=== PATIENT | female | born 1965 | race African-American/Black ===

== ENCOUNTER 2019-01-23 08:52 | Inpatient (IN) | payer MEDICAID, OTHER ==
[~2019-01-23] VITALS: Ht 157.5 cm; Wt 52.2 kg
--- NOTE | 2019-01-23 09:00 | NUR ---
PT A/OX4, BIB [facility], C/O EPIGASTRIC PAIN THAT STARTED YESTERDAY BUT WORSE TODAY. PT REPORTS NON-PROVOKED EPIGASTRIC PAIN, SHARP IN QUALITY, RADIATES UP THE L SIDE OF THE NECK AND DOWN INTO THE L ARM, 3/10, CONSTANT. SECONDARY COMPLAINT: NAUSEA. PT DENIES SOB, DIZZINESS, HEADACHE, VOMITING. ER MD AT BEDSIDE FOR MSE.
[2019-01-23] MEDS ORDERED: PANTOPRAZOLE SODIUM 40 MG TABLET.DR PO ONE ×2 (09:12→09:15)
[2019-01-23] MEDS ORDERED: MAG HYDROX/AL HYDROX/SIMETH 30 ML LIQUID UDC ONE (09:12)
[2019-01-23] MEDS ORDERED: LIDOCAINE VISCUS 2% 15 ML UDC ONE (09:12)
[2019-01-23] MEDS ORDERED: LIDOCAINE VISCUS 2% 15 ML UDC MM ONE (09:15)
[2019-01-23] MEDS ORDERED: MAG HYDROX/AL HYDROX/SIMETH 30 ML LIQUID UDC PO ONE (09:15)
[2019-01-23] MEDS ORDERED: ONDANSETRON 4 MG/2 ML VIAL IV ONE (09:30)
[2019-01-23] MEDS ORDERED: ONDANSETRON ODT 4 MG TAB.RAPDIS ONE (09:41)
[2019-01-23] MEDS ORDERED: ONDANSETRON ODT 4 MG TAB.RAPDIS SL ONE (09:45)
[2019-01-23] MEDS ORDERED: MORPHINE SULFATE 2 MG/1 ML DISP.SYRIN ONE (09:47)
[2019-01-23 09:51] LABS: CREATININE 0.9 mg/dL (0.6-1.3); POTASSIUM 3.8 mmol/L (3.5-5.1)
[2019-01-23 09:56] LABS: BILIRUBIN,DIRECT 0.2 mg/dL (0.0-0.2); BILIRUBIN,TOTAL 0.7 mg/dL (0.2-1.0); TOTAL PROTEIN, SERUM 8.9 g/dL (6.4-8.2)
[2019-01-23 09:58] LABS: BASOPHILS # (AUTO) 0.1 K/uL (0.0-8.0); BASOPHILS % (AUTO) 1.4 % (0.0-2.0); EOSINOPHILS % (AUTO) 0.3 % (0.0-7.0); HEMATOCRIT 43.8 % (31.2-41.9); HEMOGLOBIN 13.8 g/dL (10.9-14.3); LYMPHOCYTES # (AUTO) 1.9 K/uL (20.0-40.0); LYMPHOCYTES % (AUTO) 25.3 % (20.5-51.5); MEAN CORPUSCULAR HEMOGLOBIN 28.5 uug (24.7-32.8); MEAN CORPUSCULAR HGB CONC 32 g/dL (32.3-35.6); MEAN CORPUSCULAR VOLUME 90.1 fL (75.5-95.3); MONOCYTES # (AUTO) 0.4 K/uL (2.0-10.0); MONOCYTES % (AUTO) 5.6 % (0.0-11.0); NEUTROPHILS % (AUTO) 67.4 % (38.5-71.5); PLATELET COUNT (AUTO) 357 K/uL (179-408); RED BLOOD CELL COUNT(AUTO) 4.86 MIL/uL (3.63-4.92); WHITE BLOOD COUNT (AUTO) 7.4 K/uL (3.8-11.8)
[2019-01-23] MEDS ORDERED: MORPHINE SULFATE 2 MG/1 ML DISP.SYRIN IV ONE (10:00)
[2019-01-23] MEDS ORDERED: MORPHINE SULFATE 4 MG/1 ML DISP.SYRIN IV ONE (11:45)
[2019-01-23] MEDS ORDERED: MORPHINE SULFATE 4 MG/1 ML DISP.SYRIN ONE (11:49)
--- NOTE | 2019-01-23 13:14 | NUR ---
ADMITTING REPORT GIVEN TO CRISTY BECK.
--- NOTE | 2019-01-23 13:15 | NUR ---
Pt. admitted to TELE 324, under care of Dr. STEARNS. Belongs List completed
[2019-01-23] MEDS ORDERED: IV NORMAL SALINE 1000 ML BAG IV ONE (14:00)
--- NOTE | 2019-01-23 14:15 | NUR ---
PT ARRIVED VIA GURNEY ON THE [facility] UNIT. PT IS CALM, COOPERATIVE, STABLE AT THIS TIME. PT DESCRIBED SHARP AND DULL PAIN RADIATING FROM NECK TO SHOULDER TO ARM. PT C/O NUMBNESS ON THE LEFT SIDE OF FACE. BILATERAL LOWER AND UPPER EXTREMITIES ARE STRONG, EQUAL, WNL, PUPILS DILATE EQUALLY, NO SIGNS OF FACIAL DROOPING. PT IS ON ROOM AIR SATURATING AT 98%. PT STATES THAT SHE WAS A [facility] A DAY AGO AND THAT SHE WAS DIAGNOSED WITH MILD DC, NOTIFIED. CONTINUE TO MONITOR PT.
[2019-01-23 14:45] VITALS: BP 148/84
[2019-01-23] MEDS ORDERED: ZOLPIDEM 5 MG TABLET PO PRN (16:15)
[2019-01-23] MEDS ORDERED: ACETAMINOPHEN 325 MG TABLET PO PRN (16:15)
[2019-01-23] MEDS: HYDROCODONE/APAP 5-325MG TABLET PO PRN ×2 (17:33→22:08)
--- NOTE | 2019-01-23 19:20 | NUR ---
Received patient lying in bed. AAOX4. In no acute distress. Denies any SOB. pain on left side of face, shoulder and left arm area subsiding. Patient reported vomiting x1 and still feeling nauseated. Will provided Zofran PRN per order. IV site on right wrist intact and patent, but tender to touch. IV site on left AC intact and patent. Needs assessed and attended to. Safety measure initiated and call juárez within reach.
--- NOTE | 2019-01-23 19:20 | NUR ---
Received patient lying in bed. AAOX4. In no acute distress. Denies any SOB. Will provide Dilaudid PRN per order. IV site on right FA intact and patent. IVF infusing. Needs assessed and attended to. Safety measure initiated and call juárez within reach. Addendum: 01/23/19 at [id number] by CHILANGO FOY RN Wrong patient
[2019-01-23] MEDS: ONDANSETRON 4 MG/2 ML VIAL IV PRN (19:41)
[2019-01-23] MEDS: DOCUSATE SODIUM 100 MG CAPSULE PO SCH (20:19)
[2019-01-23 20:22] VITALS: BP 143/81
[2019-01-23] MEDS ORDERED: DOCUSATE SODIUM 250 MG CAPSULE PO SCH (21:00)
[2019-01-23 23:51] VITALS: BP 141/82
[2019-01-24 04:59] VITALS: BP 138/85
[2019-01-24] MEDS: PANTOPRAZOLE SODIUM 40 MG TABLET.DR PO SCH (06:03)
--- NOTE | 2019-01-24 06:08 | NUR ---
AAOX4. In no acute distress. Denies any further pain or SOB. No further vomiting. IV site on right wrist and left AC intact and patent. Needs assessed and attended to. Safety measure maintained and call juárez within reach.
[2019-01-24 07:35] LABS: BASOPHILS % (AUTO) 0.8 % (0.0-2.0); EOSINOPHILS % (AUTO) 0.4 % (0.0-7.0); HEMATOCRIT 37.6 % (31.2-41.9); LYMPHOCYTES # (AUTO) 1.7 K/uL (20.0-40.0); LYMPHOCYTES % (AUTO) 28.1 % (20.5-51.5); MEAN CORPUSCULAR HEMOGLOBIN 28.1 uug (24.7-32.8); MEAN CORPUSCULAR HGB CONC 32 g/dL (32.3-35.6); MONOCYTES % (AUTO) 16.5 % (0.0-11.0); NEUTROPHILS # (AUTO) 3.2 K/uL (1.8-8.9); NEUTROPHILS % (AUTO) 54.2 % (38.5-71.5); PLATELET COUNT (AUTO) 333 K/uL (179-408); RED BLOOD CELL COUNT(AUTO) 4.27 MIL/uL (3.63-4.92); WHITE BLOOD COUNT (AUTO) 5.9 K/uL (3.8-11.8)
[2019-01-24 07:49] LABS: BILIRUBIN,TOTAL 1.5 mg/dL (0.2-1.0); CREATININE 0.9 mg/dL (0.6-1.3); MAGNESIUM 2.3 mg/dL (1.8-2.4); TOTAL PROTEIN, SERUM 8.2 g/dL (6.4-8.2)
[2019-01-24 07:51] LABS: THYROID STIMULATING HORMONE 6.094 mIU/mL (0.358-3.740)
[2019-01-24 08:00] VITALS: BP 133/83
[2019-01-24] MEDS: ASPIRIN EC 325 MG TABLET.DR PO SCH (08:42)
[2019-01-24 09:05] LABS: LYMPHOCYTES % (MANUAL) 36 % (20-40); MONOCYTES % (MANUAL) 17 % (2-10); NEUTROPHILS % (MANUAL) 47 % (42-75)
--- NOTE | 2019-01-24 09:54 | NUR ---
PATIENT IS RESTING, WAITING FOR MRI AT 9:30 AM, NO S/S DISTRESS, CONSENT FORM IN THE FILE
[2019-01-24] MEDS: ONDANSETRON 4 MG/2 ML VIAL IV PRN (12:22)
[2019-01-24 12:28] VITALS: BP 144/100
--- NOTE | 2019-01-24 13:15 | NUR ---
PATIENT CAME FROM MRI, FEELS NAUSEATED. ZOFRAN IS GIVEN, ASSESSED, SHE FEELS GOOD, RESTING, NO S/S DISTRESS NOTED
[2019-01-24 16:13] VITALS: BP 134/91
--- NOTE | 2019-01-24 18:59 | NUR ---
PATIENT IS RESTING, SLEPT WELL DURING THE DAY, ALL SAFETY AND COMFORT MEASURES ARE IMPLEMENTED, SISTER IN BED SIDE
[2019-01-24] MEDS: HYDROCODONE/APAP 5-325MG TABLET PO PRN (19:49)
[2019-01-24] MEDS: DOCUSATE SODIUM 100 MG CAPSULE PO SCH (20:05)
[2019-01-24 20:15] VITALS: BP 143/91
[2019-01-24] MEDS ORDERED: ATORVASTATIN 40 MG TABLET PO SCH (21:00)
--- NOTE | 2019-01-24 21:00 | NUR ---
Received patient AAOx4. Sister at bedside. D/C telemetry. Patient complains of right neck, and arm pain. PRN Barney administered. Denies headache and nausea at this time. Swallowing screen evaluation completed and passed. Tolerated medications, able to swallow medications with glass of water. IV on left AC patent and intact. Patient verbalizes understanding of plan of care. Safety precautions implemented. Bed in lowest and locked position. Call light within reach. All needs met at this time. Will continue to monitor throughout shift.
[2019-01-25] MEDS: PANTOPRAZOLE SODIUM 40 MG TABLET.DR PO SCH (06:02)
--- NOTE | 2019-01-25 06:30 | NUR ---
Patient slept throughout the night. VSS. No s/s of pain or acute distress. Denies further pain. No further vomiting. Safety and comfort measures implemented and effective. Continue plan of care.
[2019-01-25 06:45] VITALS: BP 116/81
[2019-01-25 07:18] LABS: BASOPHILS % (AUTO) 1.1 % (0.0-2.0); EOSINOPHILS # (AUTO) 0.1 K/uL (0.0-0.7); EOSINOPHILS % (AUTO) 3.4 % (0.0-7.0); HEMOGLOBIN 12.9 g/dL (10.9-14.3); LYMPHOCYTES # (AUTO) 1.1 K/uL (20.0-40.0); MEAN CORPUSCULAR HGB CONC 33 g/dL (32.3-35.6); MEAN CORPUSCULAR VOLUME 87.3 fL (75.5-95.3); MONOCYTES # (AUTO) 0.6 K/uL (2.0-10.0); MONOCYTES % (AUTO) 16.9 % (0.0-11.0); NEUTROPHILS # (AUTO) 1.9 K/uL (1.8-8.9); NEUTROPHILS % (AUTO) 49.6 % (38.5-71.5); PLATELET COUNT (AUTO) 301 K/uL (179-408); RED BLOOD CELL COUNT(AUTO) 4.46 MIL/uL (3.63-4.92); WHITE BLOOD COUNT (AUTO) 3.7 K/uL (3.8-11.8)
--- NOTE | 2019-01-25 07:30 | NUR ---
pt received in bed sleeping .pt is axox4 no c/o pain noted ,call light with in reach
[2019-01-25 07:31] LABS: BILIRUBIN,DIRECT 0.2 mg/dL (0.0-0.2); BILIRUBIN,TOTAL 1.1 mg/dL (0.2-1.0); CREATININE 0.8 mg/dL (0.6-1.3); POTASSIUM 4.1 mmol/L (3.5-5.1); TOTAL PROTEIN, SERUM 7.9 g/dL (6.4-8.2)
[2019-01-25] MEDS: ASPIRIN EC 325 MG TABLET.DR PO SCH (08:06)
[2019-01-25 08:58] LABS: EOSINOPHILS % (MANUAL) 3 % (0-8); LYMPHOCYTES % (MANUAL) 30 % (20-40); MONOCYTES % (MANUAL) 16 % (2-10); NEUTROPHILS % (MANUAL) 51 % (42-75)
[2019-01-25 11:11] VITALS: BP 103/77
--- NOTE | 2019-01-25 13:50 | NUR ---
pt went to [facility] for mri via ambulances in stable condition
--- NOTE | 2019-01-25 15:09 | NUR ---
pt is back from mri via ambulances in stable condition
[2019-01-25 15:25] VITALS: BP 137/89
[2019-01-25] MEDS ORDERED: ASPI-605 PO (16:20)
[2019-01-25] MEDS ORDERED: ATOR40TA PO (16:20)
--- NOTE | 2019-01-25 17:12 | NUR ---
d/c orders received noted and carried out,d/c instruction given to the pt,ene/leah hawkins per md orders,pt said she will follow up with her pcp in one week and follow up with dr pelaez ,pt left the facility via private car in stable condition
== END 2019-01-25 17:15 | disposition home or self-care (01) | DRG 347 ==
LOC: ER 08:52 → TELE3 13:59 → MEDSURG3 01-24 20:05
PROVIDERS: ADMIT Internal Medicine; ATTEND Internal Medicine
DX: M50.122 Cervical disc disorder at C5-C6 level with radiculopathy (principal); R17 Unspecified jaundice; R20.2 Paresthesia of skin; M94.0 Chondrocostal junction syndrome [Tietze]; E78.5 Hyperlipidemia, unspecified; E02 Subclinical iodine-deficiency hypothyroidism; I10 Essential (primary) hypertension; M77.9 Enthesopathy, unspecified; M47.892 Other spondylosis, cervical region; Z82.3 Family history of stroke; Z86.79 Personal history of other diseases of the circulatory system; Z90.710 Acquired absence of both cervix and uterus; Z80.42 Family history of malignant neoplasm of prostate; R29.700 NIHSS score 0
CPT/HCPCS: 36415; 70030-TC; 70450; 70553; 71045; 72125; 72141; 76700; 83690; 83735; 84100; 84443; 85025; 93005; 93307; 93880; A4663; G0378; J2270; J2405; J7030; Q0162

== ENCOUNTER 2023-06-03 11:00 | Inpatient (IN) | payer BC, OTHER ==
[~2023-06-03] VITALS: Ht 157.5 cm; Wt 55.8 kg
[~2023-06-03 11:00] MED LIST: ASPI-605 PO; ATOR40TA PO
[2023-06-03] MEDS ORDERED: IV NORMAL SALINE 1000 ML BAG IV ONE ×2 (13:00→17:30)
[2023-06-03] MEDS ORDERED: DEXAMETHASONE SOD PHOSPHATE 4 MG INJ IV ONE (13:00)
[2023-06-03] MEDS ORDERED: CEFTRIAXONE 1 G in IV DEXTROSE 5% 50 ML IV ONE (13:00)
[2023-06-03 13:33] LABS: BASOPHILS # (AUTO) 0.1 K/UL (0.0-0.2); DIFFERENTIAL COMMENT 0; EOSINOPHILS % (AUTO) 0.2 % (0.0-7.0); HEMATOCRIT 40.5 % (31.2-41.9); HEMOGLOBIN 13.1 g/dL (10.9-14.3); LYMPHOCYTES # (AUTO) 1.7 K/uL (0.8-4.8); MEAN CORPUSCULAR HEMOGLOBIN 29.2 uug (24.7-32.8); MEAN CORPUSCULAR HGB CONC 32 g/dL (32.3-35.6); MEAN CORPUSCULAR VOLUME 90.2 fL (75.5-95.3); MONOCYTES # (AUTO) 0.8 K/uL (0.1-1.30); MONOCYTES % (AUTO) 7.9 % (0.0-11.0); NEUTROPHILS # (AUTO) 7.3 K/uL (1.8-8.9); NEUTROPHILS % (AUTO) 73.9 % (38.5-71.5); PLATELET COUNT (AUTO) 192 K/uL (179-408); RED BLOOD CELL COUNT(AUTO) 4.49 MIL/uL (3.63-4.92); RED CELL DISTRIBUTION WIDTH 14.7 % (12.3-17.7); WHITE BLOOD COUNT (AUTO) 9.9 K/uL (3.8-11.8)
[2023-06-03] MEDS ORDERED: CEFTRIAXONE /D5W 50ML IVPB **ER PYXIS IV ONE (13:33)
[2023-06-03] MEDS ORDERED: DEXAMETHASONE SOD PHOSPHATE 10 MG INJ ONE (13:34)
[2023-06-03 13:56] LABS: ALANINE AMINOTRANSFERASE 39 U/L (14-59); ALBUMIN 4.3 g/dL (3.4-5.0); ALKALINE PHOSPHATASE 116 U/L (50-136); ASPARTATE AMINOTRANSFERASE 59 U/L (15-37); BILIRUBIN,DIRECT 0.2 mg/dL (0.0-0.2); BILIRUBIN,TOTAL 0.8 mg/dL (0.2-1.0); CALCIUM 8.6 mg/dL (8.5-10.1); CARBON DIOXIDE 20 mmol/L (21-32); CHLORIDE 96 mmol/L (98-107); CREATININE 0.8 mg/dL (0.6-1.3); GLUCOSE 68 mg/dL (74-106); NT-PRO BNP 14 pg/mL (0-125); POTASSIUM 4.5 mmol/L (3.5-5.1); SODIUM SERUM 136 mmol/L (136-145); TOTAL PROTEIN, SERUM 8.3 g/dL (6.4-8.2); UREA NITROGEN, BLOOD 9 mg/dL (7-18)
[2023-06-03 14:03] LABS: LACTIC ACID 6.2 mmol/L (0.4-2.0)
[2023-06-03] MEDS ORDERED: KETOROLAC TROMETHAMINE 15 MG INJ IVP ONE (15:00)
[2023-06-03] MEDS ORDERED: KETOROLAC TROMETHAMINE 15 MG INJ ONE (15:17)
[2023-06-03] MEDS ORDERED: ONDANSETRON 4 MG/2 ML VIAL ONE (18:44)
[2023-06-03] MEDS ORDERED: MORPHINE SULFATE 4 MG/1 ML DISP.SYRIN ONE (18:44)
[2023-06-03] MEDS ORDERED: ONDANSETRON 4 MG/2 ML VIAL IV ONE (19:00)
[2023-06-03] MEDS ORDERED: MORPHINE SULFATE 4 MG/1 ML DISP.SYRIN IV ONE (19:00)
[2023-06-03] MEDS ORDERED: MAGNESIUM HYDROXIDE 30 ML LIQUID UDC PO PRN (19:45)
[2023-06-03] MEDS ORDERED: ONDANSETRON 4 MG/2 ML VIAL IV PRN (19:45)
[2023-06-03] MEDS ORDERED: REMEDY ESSENTIAL ZINC PASTE 113 GM TP PRN (19:45)
[2023-06-03] MEDS ORDERED: ACETAMINOPHEN 325 MG TABLET PO PRN (19:45)
[2023-06-03] MEDS ORDERED: MORPHINE SULFATE 2 MG/1 ML DISP.SYRIN IV PRN (20:00)
[2023-06-03 20:35] VITALS: BP 114/66; TEMP 98.6; O2SAT 96
[2023-06-03] MEDS: IV D5 1/2 NS 1000 ML 1,000 ML IV PRN (20:53)
[2023-06-03] MEDS: BENZOCAINE/MENTH/CETYLPYRD LOZENGE MM PRN (21:26)
[2023-06-03] MEDS: ENOXAPARIN SODIUM 40 MG/0.4 ML DISP.SYRIN SQ SCH (21:28)
[2023-06-04] VITALS: BP 115/78; TEMP 97.6; O2SAT 95
[2023-06-04 04:00] VITALS: BP 122/79; TEMP 98.1; O2SAT 96
[2023-06-04] MEDS: IV D5 1/2 NS 1000 ML 1,000 ML IV PRN ×2 (05:57→15:57)
[2023-06-04] MEDS: PANTOPRAZOLE SODIUM 40 MG TABLET.DR PO SCH (06:05)
[2023-06-04 07:24] LABS: BASOPHILS # (AUTO) 0.1 K/UL (0.0-0.2); BASOPHILS % (AUTO) 0.5 % (0.0-2.0); HEMOGLOBIN 11.9 g/dL (10.9-14.3); LYMPHOCYTES % (AUTO) 9.1 % (20.5-51.5); MEAN CORPUSCULAR HEMOGLOBIN 29.7 uug (24.7-32.8); MEAN CORPUSCULAR HGB CONC 33 g/dL (32.3-35.6); MEAN CORPUSCULAR VOLUME 89.9 fL (75.5-95.3); MONOCYTES # (AUTO) 0.2 K/uL (0.1-1.30); MONOCYTES % (AUTO) 2.1 % (0.0-11.0); NEUTROPHILS # (AUTO) 9.7 K/uL (1.8-8.9); NEUTROPHILS % (AUTO) 88.3 % (38.5-71.5); PLATELET COUNT (AUTO) 415 K/uL (179-408); RED BLOOD CELL COUNT(AUTO) 4.01 MIL/uL (3.63-4.92)
[2023-06-04 07:36] LABS: DIFFERENTIAL COMMENT 1
[2023-06-04 07:45] LABS: ALBUMIN 3.7 g/dL (3.4-5.0); BILIRUBIN,DIRECT 0.2 mg/dL (0.0-0.2); BILIRUBIN,TOTAL 1.2 mg/dL (0.2-1.0); CREATININE 0.9 mg/dL (0.6-1.3); PHOSPHOROUS 3.1 mg/dL (2.5-4.9); POTASSIUM 3.9 mmol/L (3.5-5.1); TOTAL PROTEIN, SERUM 7.7 g/dL (6.4-8.2)
[2023-06-04 08:00] VITALS: BP 143/86; TEMP 98.4; O2SAT 96
[2023-06-04 08:23] LABS: MAGNESIUM 2.1 mg/dL (1.8-2.4)
[2023-06-04 12:30] VITALS: BP 144/83; TEMP 99.1; O2SAT 98
[2023-06-04] MEDS: CEFTRIAXONE 1 G in IV DEXTROSE 5% 50 ML IV SCH (14:30)
[2023-06-04] MEDS: BENZOCAINE/MENTH/CETYLPYRD LOZENGE MM PRN (15:26)
[2023-06-04 16:00] VITALS: BP 136/81; TEMP 98.8; O2SAT 100
[2023-06-04 20:21] VITALS: BP 143/87; TEMP 97.9; O2SAT 98
[2023-06-04] MEDS: ATORVASTATIN 40 MG TABLET PO SCH (20:22)
[2023-06-04] MEDS: ENOXAPARIN SODIUM 40 MG/0.4 ML DISP.SYRIN SQ SCH (20:22)
[2023-06-05 00:16] VITALS: BP 137/84; TEMP 97.8; O2SAT 98
[2023-06-05 04:18] VITALS: BP 137/79; TEMP 97.8; O2SAT 97
[2023-06-05] MEDS: IV D5 1/2 NS 1000 ML 1,000 ML IV PRN ×3 (04:58→21:50)
[2023-06-05] MEDS: PANTOPRAZOLE SODIUM 40 MG TABLET.DR PO SCH (06:30)
[2023-06-05 06:34] LABS: BASOPHILS % (AUTO) 0.2 % (0.0-2.0); HEMATOCRIT 34.4 % (31.2-41.9); HEMOGLOBIN 11.1 g/dL (10.9-14.3); LYMPHOCYTES # (AUTO) 0.6 K/uL (0.8-4.8); LYMPHOCYTES % (AUTO) 5.1 % (20.5-51.5); MEAN CORPUSCULAR HEMOGLOBIN 29.1 uug (24.7-32.8); MEAN CORPUSCULAR HGB CONC 32 g/dL (32.3-35.6); MEAN CORPUSCULAR VOLUME 89.8 fL (75.5-95.3); MONOCYTES # (AUTO) 0.7 K/uL (0.1-1.30); NEUTROPHILS # (AUTO) 10.9 K/uL (1.8-8.9); NEUTROPHILS % (AUTO) 88.7 % (38.5-71.5); PLATELET COUNT (AUTO) 374 K/uL (179-408); RED BLOOD CELL COUNT(AUTO) 3.83 MIL/uL (3.63-4.92); RED CELL DISTRIBUTION WIDTH 15.1 % (12.3-17.7); WHITE BLOOD COUNT (AUTO) 12.3 K/uL (3.8-11.8)
[2023-06-05 06:41] LABS: DIFFERENTIAL COMMENT 1
[2023-06-05 06:54] LABS: CREATININE 0.9 mg/dL (0.6-1.3); MAGNESIUM 2.1 mg/dL (1.8-2.4); PHOSPHOROUS 1.6 mg/dL (2.5-4.9); POTASSIUM 3.5 mmol/L (3.5-5.1)
[2023-06-05] MEDS: ASPIRIN EC 81 MG TABLET.DR PO SCH ×3 (09:00→09:50)
[2023-06-05 11:51] VITALS: BP 137/77; TEMP 97.9; O2SAT 98
[2023-06-05] MEDS: CEFTRIAXONE 1 G in IV DEXTROSE 5% 50 ML IV SCH (13:26)
[2023-06-05 16:00] VITALS: BP 133/80; TEMP 98.6; O2SAT 98
[2023-06-05] MEDS ORDERED: NEUTRA PHOS PACKET PO SCH (16:00)
[2023-06-05 20:00] VITALS: BP 142/90; TEMP 98.1; O2SAT 99
[2023-06-05] MEDS: ATORVASTATIN 40 MG TABLET PO SCH (20:54)
[2023-06-05] MEDS: ENOXAPARIN SODIUM 40 MG/0.4 ML DISP.SYRIN SQ SCH (20:56)
[2023-06-05] MEDS: BENZOCAINE/MENTH/CETYLPYRD LOZENGE MM PRN (21:45)
[2023-06-05 23:03] LABS: *BILIRUBIN,URIN NEGATIVE (NEGATIVE); *BLOOD, URINE NEGATIVE (NEGATIVE); *CLARITY,URINE CLEAR (CLEAR); *KETONES,URINE NEGATIVE (NEGATIVE); *PROTEIN,URINE NEGATIVE (NEGATIVE); *UROBILINOGEN,URINE 0.2 E.U./dl (NORMAL); LEUKOCYTE ESTERASE ,URINE NEGATIVE (NEGATIVE); NITRITE, URINE NEGATIVE (NEGATIVE); UGLUCOSE NEGATIVE (NEGATIVE)
[2023-06-05 23:05] LABS: *COLOR,URINE LIGHT YELLOW (YELLOW)
[2023-06-06] VITALS: BP 157/88; TEMP 97.8; O2SAT 99
[2023-06-06 04:00] VITALS: BP 150/84; TEMP 98.4; O2SAT 99
[2023-06-06] MEDS: PANTOPRAZOLE SODIUM 40 MG TABLET.DR PO SCH (06:11)
[2023-06-06] MEDS: IV D5 1/2 NS 1000 ML 1,000 ML IV PRN (06:14)
[2023-06-06 06:28] LABS: BASOPHILS % (AUTO) 0.6 % (0.0-2.0); EOSINOPHILS % (AUTO) 0.2 % (0.0-7.0); HEMATOCRIT 33.2 % (31.2-41.9); LYMPHOCYTES % (AUTO) 24.8 % (20.5-51.5); MEAN CORPUSCULAR HEMOGLOBIN 29.7 uug (24.7-32.8); MEAN CORPUSCULAR HGB CONC 33 g/dL (32.3-35.6); MEAN CORPUSCULAR VOLUME 89.8 fL (75.5-95.3); MONOCYTES # (AUTO) 0.5 K/uL (0.1-1.30); MONOCYTES % (AUTO) 6.6 % (0.0-11.0); NEUTROPHILS # (AUTO) 5.4 K/uL (1.8-8.9); NEUTROPHILS % (AUTO) 67.8 % (38.5-71.5); PLATELET COUNT (AUTO) 266 K/uL (179-408); RED CELL DISTRIBUTION WIDTH 14.5 % (12.3-17.7); WHITE BLOOD COUNT (AUTO) 7.9 K/uL (3.8-11.8)
[2023-06-06 06:48] LABS: CALCIUM 7.9 mg/dL (8.5-10.1); CREATININE 0.7 mg/dL (0.6-1.3); MAGNESIUM 1.9 mg/dL (1.8-2.4); PHOSPHOROUS 2.3 mg/dL (2.5-4.9); POTASSIUM 3.2 mmol/L (3.5-5.1)
[2023-06-06 06:55] LABS: DIFFERENTIAL COMMENT 1
[2023-06-06] MEDS: ASPIRIN EC 81 MG TABLET.DR PO SCH (08:46)
[2023-06-06 12:00] VITALS: BP 124/78; TEMP 98.7; O2SAT 97
[2023-06-06] MEDS ORDERED: POTASSIUM CHLORIDE 20 MEQ TAB.PRT.SR PO ONE (12:00)
[2023-06-06] MEDS: CEFTRIAXONE 1 G in IV DEXTROSE 5% 50 ML IV SCH (13:13)
[2023-06-06] MEDS ORDERED: AMOX-427 PO (14:20)
[2023-06-06] MEDS ORDERED: NEUTRA PHOS PACKET PO ONE (15:00)
== END 2023-06-06 16:15 | disposition home or self-care (01) | DRG 872 ==
LOC: ER 11:00 → TELE3 18:00 → TELE-TD3 06-04 05:22 → TELE3 06-04 05:26
PROVIDERS: ADMIT Student in an Organized Health Care Education/Training Program; ATTEND Student in an Organized Health Care Education/Training Program
DX: A41.9 Sepsis, unspecified organism (principal); E87.20 Acidosis, unspecified; J40 Bronchitis, not specified as acute or chronic; Z20.822 Contact with and (suspected) exposure to COVID-19; E03.8 Other specified hypothyroidism; M50.10 Cervical disc disorder with radiculopathy, unspecified cervical region; I34.1 Nonrheumatic mitral (valve) prolapse; E78.5 Hyperlipidemia, unspecified; M19.90 Unspecified osteoarthritis, unspecified site; Z90.711 Acquired absence of uterus with remaining cervical stump; Z79.899 Other long term (current) drug therapy; E16.2 Hypoglycemia, unspecified; R74.01 Elevation of levels of liver transaminase levels
CPT/HCPCS: 36415; 71045; 83605; 83735; 84100; 84484; 85025; 85730; 87040; 93005; A4663; G0378; J0696; J1100; J1650; J1885; J2270; J2405; J7040

== ENCOUNTER 2023-07-01 10:15 | Emergency (ER) | payer BC, OTHER ==
[~2023-07-01] VITALS: Ht 157.5 cm; Wt 63.5 kg
[~2023-07-01 10:15] MED LIST changes: +AMOX-427 PO
[2023-07-01] MEDS ORDERED: MORPHINE SULFATE 2 MG/1 ML DISP.SYRIN IV ONE ×2 (10:45→14:15)
[2023-07-01] MEDS ORDERED: LIDOCAINE VISCUS 2% 15 ML UDC MM ONE (10:45)
[2023-07-01] MEDS ORDERED: MAG HYDROX/AL HYDROX/SIMETH 30 ML LIQUID UDC PO ONE (10:45)
[2023-07-01] MEDS ORDERED: FAMOTIDINE. 20 MG/2 ML VIAL IV ONE ×2 (10:45→11:08)
[2023-07-01 11:00] LABS: BASOPHILS # (AUTO) 0.1 K/UL (0.0-0.2); BASOPHILS % (AUTO) 0.8 % (0.0-2.0); EOSINOPHILS # (AUTO) 0.2 K/uL (0.0-0.7); EOSINOPHILS % (AUTO) 2.7 % (0.0-7.0); HEMATOCRIT 36.9 % (31.2-41.9); HEMOGLOBIN 12.4 g/dL (10.9-14.3); LYMPHOCYTES # (AUTO) 3.1 K/uL (0.8-4.8); LYMPHOCYTES % (AUTO) 42.1 % (20.5-51.5); MEAN CORPUSCULAR HEMOGLOBIN 29.9 uug (24.7-32.8); MEAN CORPUSCULAR HGB CONC 34 g/dL (32.3-35.6); MEAN CORPUSCULAR VOLUME 89.1 fL (75.5-95.3); MONOCYTES # (AUTO) 0.7 K/uL (0.1-1.30); MONOCYTES % (AUTO) 8.8 % (0.0-11.0); NEUTROPHILS # (AUTO) 3.4 K/uL (1.8-8.9); NEUTROPHILS % (AUTO) 45.6 % (38.5-71.5); PLATELET COUNT (AUTO) 517 K/uL (179-408); RED BLOOD CELL COUNT(AUTO) 4.14 MIL/uL (3.63-4.92); RED CELL DISTRIBUTION WIDTH 14.7 % (12.3-17.7); WHITE BLOOD COUNT (AUTO) 7.4 K/uL (3.8-11.8)
[2023-07-01] MEDS ORDERED: MAG HYDROX/AL HYDROX/SIMETH 30 ML LIQUID UDC ONE (11:07)
[2023-07-01] MEDS ORDERED: MORPHINE SULFATE 4 MG/1 ML DISP.SYRIN ONE (11:08)
[2023-07-01 11:14] LABS: DIFFERENTIAL COMMENT 1
[2023-07-01 11:24] LABS: CALCIUM 9.1 mg/dL (8.5-10.1); CARBON DIOXIDE 24 mmol/L (21-32); CHLORIDE 100 mmol/L (98-107); CREATININE 0.8 mg/dL (0.6-1.3); GLUCOSE 95 mg/dL (74-106); POTASSIUM 3.8 mmol/L (3.5-5.1); SODIUM SERUM 139 mmol/L (136-145); UREA NITROGEN, BLOOD 2 mg/dL (7-18)
[2023-07-01] MEDS ORDERED: ONDANSETRON 4 MG/2 ML VIAL IV ONE ×2 (13:00→14:15)
[2023-07-01] MEDS ORDERED: ONDANSETRON 4 MG/2 ML VIAL ONE ×2 (13:10→14:17)
[2023-07-01] MEDS ORDERED: MORPHINE SULFATE 2 MG/1 ML DISP.SYRIN ONE (14:17)
[2023-07-01 14:44] VITALS: BP 112/70; TEMP 98.2; O2SAT 98
== END 2023-07-01 14:45 | disposition home or self-care (01) ==
LOC: ER 10:15
DX: R07.89 Other chest pain (principal); R20.2 Paresthesia of skin; E03.9 Hypothyroidism, unspecified; Z90.710 Acquired absence of both cervix and uterus; Z79.82 Long term (current) use of aspirin; Z79.2 Long term (current) use of antibiotics; Z79.899 Other long term (current) drug therapy
CPT/HCPCS: 99285; 96374; 70450; 71045; 96375; 80048; 85025; 85379; 84484 ×2; 36415; 93005; 96376; J3490; J2405 ×2; J2270 ×2; A4663